=== PATIENT | male | born 1955 | race Caucasian/White ===

== ENCOUNTER 2021-03-29 16:23 | Emergency (ER) | payer OTHER ==
[~2021-03-29] VITALS: Ht 185.4 cm; Wt 75.8 kg
[~2021-03-29 16:23] MED LIST: CLONAZEPAM 1 MG1 M1 PO; COLACE100 MG PO; DIAZEPAM; DILAUDID 2 MG TA2 MG PO; DILAUDID 4 MG TA4 M1; FENTANYL 1100 MCG/HR TP; FENTANYL PA50 MCG/HR TP; METHADONE PO; NORCO 5-325 TA1 EACH PO; OXYCODONE HCL5 M1 PO; OXYCONTIN60 MG PO; ROXICODONE15 M1 PO; ROXICODONE5 M1 PO; STOOL SOFTENER50 MG PO; VICOPROFEN 2001 EACH PO; ZOLOFT
[2021-03-29 17:09] LABS: ABSOLUTE NEUTROPHILS 3.6 thou/uL (1.4-8.2); BASOPHILS 0.3 % (0.0-2.0); EOSINOPHILS 1.5 % (0.0-3.0); HEMATOCRIT 41.6 % (42.0-52.0); LYMPHOCYTES 19.5 % (24.0-44.0); MCH 32.3 pg (26.0-34.0); MCHC 31.2 g/dL (28.0-37.0); MCV 103.7 fL (80.0-100.0); MONOCYTES 8.5 % (1.0-8.0); PLATELET COUNT 194 thou/uL (150-400); POLYS 70.2 % (36.0-66.0); RBC 4.01 mil/uL (4.50-6.00); RDW 15.3 % (10.5-14.5); WBC 5.1 thou/uL (4.0-11.0)
[2021-03-29 17:17] LABS: CALCIUM 8.6 mg/dL (8.5-10.1); CREATININE 0.5 mg/dL (0.7-1.3)
[2021-03-29 17:27] LABS: ALBUMIN 2.7 g/dL (3.4-5.0); TOTAL BILIRUBIN 0.6 mg/dL (0.2-1.0)
[2021-03-29 18:07] LABS: URINE BILIRUBIN NEGATIVE (Negative); URINE BLOOD 2+ (Negative); URINE CLARITY CLOUDY; URINE COLOR YELLOW; URINE GLUCOSE-RANDOM* NEGATIVE (Negative); URINE KETONES NEGATIVE (Negative); URINE LEUKOCYTES-REFLEX NEGATIVE (Negative); URINE NITRITE-REFLEX POSITIVE (Negative); URINE PROTEIN (DIPSTICK) 3+ (Negative); URINE SPECIFIC GRAVITY >= 1.030 (1.005-1.035); URINE UROBILINOGEN 0.2 E.U./dl (0.2-1.0)
[2021-03-29 18:15] LABS: BACTERIA-REFLEX >30 Many /HPF (None Seen); SQUAMOUS None Seen /LPF (0-3); URINE WBC-REFLEX >25 Many /HPF (0-5)
[2021-03-29 18:16] LABS: CRYSTALS None Seen /LPF (None Seen)
[2021-03-29] MEDS ORDERED: CEFPODOXIME PR200 M1 PO (19:03)
[2021-03-29 19:13] VITALS: BP 158/73
--- NOTE | 2021-03-31 07:30 | EKG ---
[place] [address] [facility] [place] [address] ELECTROCARDIOGRAM REPORT Name: LAVONNEVIOLET JOAQUIN ARACELI Room #: [facility]P [id number] Admission: 03/29/21 Attend Phys: Discharge: 03/29/21 Date of : 51 Report #: [id number] [facility] ED Test Date: 2021-03-29 Test Time: 16:37:30 Pat Name: VIOLET BANERJEE Department: Room: Gender: M Cap Coverer: robel : 1955 Requested By: John Koehler Order Number: [id number] MD: William Mckeon Measurements Intervals Garrett Rate: 75 P: -19 NC: 173 QRS: 15 QRSD: 87 T: -14 QT: 393 QTc: 439 Interpretive Statements Sinus rhythm Probable anteroseptal infarct, old Borderline T abnormalities, inferior leads No previous ECG available for comparison Electronically Signed On 03-31-2021 7:30:[address] OFFICE ASSISTANT by William Mckeon [email or web address] <ELECTRONICALLY SIGNED> By: William Mckeon MD, [facility] 03/31/21 0730 1637 1637 William Mckeon MD, FACC /EPI
== END 2021-03-29 19:14 | disposition home or self-care (01) ==
LOC: ER 16:23
PROVIDERS: Physician Assistant
DX: N39.0 Urinary tract infection, site not specified (principal); R60.0 Localized edema; Z79.899 Other long term (current) drug therapy